=== PATIENT | female | born 1950 | race Caucasian/White ===

== ENCOUNTER 2017-01-15 13:51 | Inpatient (IN) ==
[2017-01-15 14:19] LABS: EOS# 0.35 X1000 (0.0-0.7); EOS% 6.5 % (0.0-10.0); HEMATOCRIT 28.4 % (37.0-47.0); HEMOGLOBIN 7.2 g/dL (12.0-16.0); LYMPH# 1.01 X1000 (1.2-3.4); LYMPH% 18.8 % (20.5-51.1); MANUAL DIFF NEEDED? YES; MCHC 25.4 g/dL (33-37); MCV 63.1 FL (81-99); MONO# 0.56 X1000 (0.11-0.59); MONO% 10.4 % (1.7-9.3); MPV 10.4 FL (7.4-10.4); NEUT% 62.3 % (42.2-75.2); PLT 384 X1000 (130-400)
[2017-01-15 14:47] LABS: EOS 1 % (1-10); HYPOCHROM 2+; LYMPHS 14 % (21-51); MONO 3 % (1-9)
[2017-01-15 14:55] LABS: AGAP 12; ALBUMIN 4.4 g/dL (3.5-5.0); ALKALINE PHOSPHATASE 95 U/L (32-104); BUN 11 mg/dL (8-22); CALCIUM 9.9 mg/dL (8.8-10.2); CHLORIDE 102 mmol/L (98-107); COSMO 276; GOT 18 U/L (10-30); GPT 10 U/L (10-36); POTASSIUM 4.3 mmol/L (3.5-5.1); SODIUM 138 mmol/L (136-145); TCO2 24 mmol/L (25-35); TOTAL BILIRUBIN 0.47 mg/dL (0.20-1.00); TOTAL PROTEIN 7.9 g/dL (6.3-8.3)
--- NOTE | 2017-01-15 15:35 | Diag Imaging Result Doc PS360 ---
EXAM: CHEST, TWO VIEWS HISTORY: None given TECHNIQUE: COMPARISON: None. FINDINGS: The lungs are well expanded. The heart is not enlarged. The vessels are not distended. No pneumonia. No pleural effusions. IMPRESSION: No acute abnormality Electronically signed by Magdaleno Park 01/15/2017 3:33 PM
[2017-01-15 16:24] LABS: RETIC% 2.2 % (0.8-2.1)
[2017-01-15 16:47] LABS: IRON SATURATION 2 %; TIBC 557 ug/dL; TOTAL IRON 12 ug/dL (49-151); UNBOUND IRON 545 ug/dL (112-346)
[2017-01-15] MEDS ORDERED: NS 1,000 ML IV SCH (16:58)
--- NOTE | 2017-01-15 17:27 | PROVIDER DOCUMENTATION ---
This chart was entered by Chanell Easley Scribe, acting as scribe for Shashank Mendoza MD. HPI-General Adult - General Chief Complaint: Abnormal Lab[s] Stated Complaint: LOW BLOOD Time Seen by Provider: 01/15/17 14:55 Source: patient - History of Present Illness -Gen Adult Nature of Presenting Problems: 66 y/o F presents to ED cc of abnormal labs. Pt states she was seen at PCP office where blood was drawn . Pt was told to come to ED for evaluation of low HGB/HCT levels. Pt states she does have a history of anemia and has had 2 blood transfusion in the past. Pt states she went to see PCP due to increase of weakness/ fatigue feeling. Pt denies any chest pain . Pt denies bleeding from anywhere. Pt is alert and oriented. Location of Pain/Injury: reports: none Pain Radiation: reports: no radiation Quality of Pain: reports: none Severity: reports: mild Onset/Duration: reports: just prior to arrival Timing: reports: still present Context/Activities at Onset: reports: light activity Modifying Factors: improves with: nothing Associated Symptoms: reports: fatigue, weakness. denies: arm pain, back/neck pain, chest pain, cough, fever/chills, heartburn, malaise, sinus congestion/ drainage, seizure, shortness of breath, swelling/mass in abdomen, syncope Similar Symptoms Previously?: Yes Recently seen or treated by another doctor?: No Review of Systems - Adult - REVIEW OF SYSTEMS - ADULT Constitutional: reports: fatique, other (abnormal labs). denies: chills, fever , night sweats, weight gain Eyes: denies: blurred vision, double vision Ears, Nose, Mouth & Throat: denies: ear pain, nose pain, loose teeth, throat pain Cardiovascular: denies: chest pain, palpitations Respiratory: denies: cough, shortness of breath Gastrointestinal: denies: abdominal pain, diarrhea, difficulty swallowing, nausea, rectal bleeding, vomiting Genitourinary: denies: dysuria, discharge, hematuria, hesitency Musculoskeletal: reports: other (weakness). denies: bone pain, back pain, muscle aches, neck pain Neurological: denies: dizziness/vertigo, headache/migraines, seizure, slurred speech Past History - Adult - PAST MEDICAL HISTORY-ADULT Review of Records: reports: Old Records Reviewed, Nursing Assessment Review Other Conditions: reports: other (anemia) - IMMUNIZATION STATUS Childhood Immunizations: See Nurse Assessment Flu Vaccine: See Nurse Assessment - SOCIAL HISTORY Smoking: denies, non-smoker Substance Use: none/never, denies Physical Exam-General - PHYSICAL EXAM-ADULT Initial Vital Signs Reviewed: Yes - CONSTITUTIONAL General Appearance: appears well, alert - EYES Eyes: PERRL/EOMI, other (conjunctivae pale) - HEAD, EARS, NOSE, MOUTH & THROAT HENMT: normocephalic/atraumatic, moist mucous membranes, normal ENT inspection - NECK Neck: non-tender, full range of motion - RESPIRATORY Respiratory: chest non-tender, lungs clear, normal breath sounds - CARDIOVASCULAR Cardiovascular: normal peripheral pulses, tachycardia - GASTROINTESTINAL (ABDOMEN) Abdominal Exam: normal bowel sounds, non tender, soft - MUSCULOSKELETAL Back Exam: normal inspection, no CVA tenderness, no vertebral tenderness Extremity: normal range of motion, non-tender, normal gait - SKIN Integumentary: warm/dry, pallor - NEUROLOGIC Neurologic: grossly normal, no motor/sensory deficits - PSYCHIATRIC Psych/Mental Status: oriented x 3 Progress - PLAN OF CARE/RESULTS Progress/Plan/Lab Results: Vital Signs - 8 hr 01/15/17 13:57 Temperature 98.1 F Pulse Rate 91 H Respiratory Rate 16 Blood Pressure 135/65 O2 Sat by Pulse Oximetry 100 Laboratory Results - last 24 hr 01/15/17 01/15/17 01/15/17 14:05 14:05 14:05 WBC 5.37 RBC 4.50 Hgb 7.2 L Hct 28.4 L MCV 63.1 L MCH 16.0 L MCHC 25.4 L RDW Std Deviation 22.0 H Plt Count 384 MPV 10.4 Immature Gran % (Auto) 0.0 Neut % (Auto) 62.3 Lymph % (Auto) 18.8 L [place] % (Auto) 10.4 H Eos % (Auto) 6.5 Baso % (Auto) 2.0 H Immature Gran # (Auto) 0.00 Neut # (Auto) 3.34 Lymph # (Auto) 1.01 L [place] # (Auto) 0.56 Eos # (Auto) 0.35 Baso # (Auto) 0.11 Segmented Neutrophils 82 H Lymphocytes 14 L Monocytes 3 Eosinophils 1 Hypochromia 2+ Anisocytosis 2+ Microcytosis 2+ Sodium 138 Potassium 4.3 Chloride 102 Carbon Dioxide 24 L Anion Gap 12 BUN 11 Creatinine 0.7 Estimated GFR/1.73 m2 > 60 BUN/Creatinine Ratio 16 Glucose 120 H Calculated Osmolality 276 Calcium 9.9 Total Bilirubin 0.47 AST 18 ALT 10 Alkaline Phosphatase 95 Total Protein 7.9 Albumin 4.4 Globulin 3.5 Albumin/Globulin Ratio 1.3 Blood Type O NEGATIVE Antibody Screen NEGATIVE Orders Category Date Time Status Transfuse .Give-Transfuse Care 01/15/17 15:12 Active CHEST-2 VIEWS [RAD] Stat Exams 01/15/17 15:12 Ordered CBC WITH DIFF [HEME] Stat Lab 01/15/17 14:05 Completed CMP [COMPREHENSIVE METABOLIC PANEL] [CHEM] Stat Lab 01/15/17 14:05 Completed PRBC [LRPC (RED CELLS)] [BBK] Stat Lab 01/15/17 15:12 Uncollected TYPE & SCREEN [BBK] Stat Lab 01/15/17 14:05 Completed PLAN: LABS , MONITOR PT ADMISSION ONCE LABS ARE COMPLETED PT LABS ARE BACK AND BLOOD HAS BEEN ORDERED FOR THE PT Result Diagrams: 01/15/17 14:05 01/15/17 14:05 - CONSULTS/PCP/HOSPITALIST Notification #1 *Consult/PCP/Hospitalist*: Hector([facility] w/ hospitalist) Dr. Caraballo(hospitalist) Time Discussed: 15:14 Consult Disposition: Admit (accept pt) Departure - Departure Date of Disposition Decision: 01/15/17 Time of Disposition Decision: 15:25 DIAGNOSIS: Symptomatic anemia Disposition: ADMITTED INPATIENT 09 Certified Medical Emergency: Emergent Condition: Stable - Critical Care Note This patient required my direct & personal management of CC.: No This chart was documented by the indicated scribe, (Chanell Easley Scribe) and accurately reflects the services I performed and decisions made by me, Shashank Mendoza MD, as attested by the provider's signature.
--- NOTE | 2017-01-15 18:38 | HISTORY AND PHYSICAL ---
CHIEF COMPLAINT: Abnormal labs. HISTORY OF PRESENT ILLNESS: Mrs. Lomeli is a 66-year-old female with history of chronic anemia, fatty liver disease, diverticulosis who presents to the ER after being instructed to come here by her PCP. She had blood work drawn yesterday and was found to be profoundly anemic. She was called back today and was told to come to the ER for further evaluation. In the ER she had labs and diagnostics done. Her hemoglobin and hematocrit is noted to be 7.2 and 28.4 with an MCV of 63.1. The rest of her labs were unremarkable. Subjectively the patient does report fatigue over the past few months and some shortness of breath with exertion but she denies any other complaints. No fever, chills, cough, congestion, nausea, vomiting, diarrhea or dysuria. She denies any melena, hematochezia or hematemesis. She reports that she has been on anemic essentially her whole life but is not on any medications for this. She denies ever having had a colonoscopy as well. She is currently being transfused PRBCs and is going to be admitted for further treatment and evaluation. PAST MEDICAL HISTORY: 1. Fatty liver. 2. Chronic anemia. 3. Diverticulosis. PAST SURGICAL HISTORY: She has had a bladder sling and a colonoscopy. SOCIAL HISTORY: Patient denies tobacco, alcohol or drug use. 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 She is . is at the bedside. FAMILY HISTORY: Mother from old age. Father [place] at 52. Sister at 62 with COPD. She has other brothers that are alive, only history of cancer is in an uncle. REVIEW OF SYSTEMS: Fourteen-point review of systems obtained and found to be negative with the exception of the HPI. ALLERGIES: To acetaminophen, codeine, hydrocodone, iodinated contrast media oral and IV, oxytetracycline and penicillins. HOME MEDICATIONS: None. PHYSICAL EXAMINATION: VITAL SIGNS: Blood pressure is 131/71, heart rate 81, respiratory rate 18, O2 saturation 99% on room air, temperature is 98.1 degrees. GENERAL: This is a disheveled appearing 66-year-old female lying in hospital bed in no acute distress. NEUROLOGIC: She is awake, alert, oriented. She follows commands without focal deficits. HEENT: Head is atraumatic and normocephalic. Her pupils are equal, round, reactive to light. Conjunctivae pale, oral mucosa is pale and moist. Trachea is midline. CHEST: Clear to auscultation bilaterally. CV: Regular rate and rhythm. S1-S2 is noted. No murmurs, gallops, clicks, rubs. GI: Soft, nondistended, nontender. Bowel sounds positive. EXTREMITIES: Without edema, clubbing or cyanosis. Pulses palpable bilaterally. DIAGNOSTIC DATA: Chest x-ray negative. WBC 5.37, hemoglobin 7.2, hematocrit 28.4, MCV 63.1, platelet count 384,000. Sodium 138, potassium 4.3, chloride 102, CO2 24, anion gap 12, BUN 11, creatinine 0.7, glucose is 120, calcium 9.9. LFTs within normal limits. Albumin 4.4. ASSESSMENT AND PLAN: 1. Symptomatic microcytic anemia: Given her history of chronic anemia and fairly poor diet this would seem to be iron deficiency anemia secondary to poor oral intake of iron. However, she does take aspirin multiple times a week for various aches and pains so would not rule out gastritis or even an ulcer but she did not have any abdominal pain and denies any melena. We are going to get Dr. Michael to see her for possible endoscopy as she has never had a colonoscopy or EGD. She is currently being transfused with PRBCs and will check iron studies. 2. History of fatty liver: Liver function tests stable. She denies any abdominal pain. Abdomen exam is negative. 3. Deep vein thrombosis prophylaxis is going to be provided with SCDs/TEDs, hopefully she will be able to go home in the next 24-48 hours. Dictated by MARITZA Cuello for Shama Caraballo MD cc: MD Shama Palmer MD [facility]ITALMartin
[2017-01-15] MEDS: PEPCID IV SCH (18:47)
[2017-01-15] MEDS: SODIUM CHLORIDE 0.9% INJ SCH (18:47)
[2017-01-15] MEDS ORDERED: DULCOLAX PR PRN (19:33)
--- NOTE | 2017-01-15 22:20 | CONSULTATION ---
DATE OF CONSULTATION: 01/15/2017 PRIMARY CARE PROVIDER: Aayush Hamilton M.D. PRIMARY HOSPITALIST: Shama Caraballo M.D. INDICATION FOR CONSULTATION: 1. Unexplained anemia. 2. Fatigue. HISTORY OF PRESENT ILLNESS: The patient is a 66-year-old white female whose past medical history includes chronic anemia, fatty liver disease and diverticulosis. She presented to the emergency room after she underwent evaluation by her primary care physician for fatigue. She was noted to be significantly anemic in his office. She denies other symptoms. She states that she has been anemic all her life. PAST MEDICAL HISTORY: 1. Fatty liver. 2. Chronic anemia. 3. Diverticulosis. 4. Constipation. 5. Mitral valve prolapse. PAST SURGICAL HISTORY: 1. Bladder sling. 2. Cholecystectomy. 3. She denies a previous colonoscopy. SOCIAL HISTORY: Patient denies alcohol, tobacco or recreational drug use. FAMILY HISTORY: Negative for colon cancer. She does note that her mother from old age. Her father had a myocardial infarction at 52. Her sister had COPD at 62. She has brothers who are alive and well. REVIEW OF SYSTEMS: Remarkable for constipation, hunger and increased thirst. She also notes a headache since she has been anemic and n.p.o. MEDICATION ALLERGIES: 1. Acetaminophen. 2. Codeine. 3. Hydrocodone. 4. Iodinated contrast. 5. Oxytetracycline. 6. Penicillins. 7. She reports an adverse reaction to general anesthesia at [facility]. HOME MEDICATIONS: None. PHYSICAL EXAM: General: She is in no acute distress. Vital signs: Her blood pressure is 137/63, pulse 78, respiration 18, temperature of 98.2 degrees. HEENT: Unremarkable. Pulmonary: Lungs are clear to auscultation with normal respiratory effort. Cardiovascular Exam: Reveals regular rate and rhythm with no murmurs, gallops, or rubs. Abdomen: Reveals normoactive bowel sounds. The abdomen is soft with mild right upper quadrant tenderness but no rebound or guarding. Extremities: Bilaterally are negative for cyanosis, clubbing or edema. OBJECTIVE DATA: Reveals a hemoglobin of 7.2 with hematocrit 28.4 and a white count of 5.37. She has 384,000 platelets. Sodium is 138, potassium 4.3, chloride 102, CO2 24, BUN 11, creatinine 0.7, glucose of 120. Calcium is 9.9, total bilirubin 0.47, AST 18, ALT 10, alkaline phosphatase 95, total protein 7.9 and albumin 4.4. Iron is 12 with a ferritin of 4. B12 is 445. Vitamin D 25 hydroxy is 19.8 with a folic acid of 23.7. IMPRESSION: 1. Anemia. 2. Constipation. 3. History of fatty liver disease. 4. History of diverticulosis. 5. Iron deficiency anemia. 6. Anemia of chronic disease. RECOMMENDATION: 1. I recommended that the patient undergo an EGD and colonoscopy. She is somewhat reluctant to make a decision today given her adverse reaction to general anesthesia at [facility]. I shared with her that we use propofol as opposed to deep general anesthesia. She will think about it and reconsider whether or not to undergo endoscopy this admission. She also inquired about performing a colonoscopy and EGD with no sedation. I actively discouraged her from undergoing the procedure without sedation. 2. The patient reports a history of peptic ulcer disease as a child. Therefore , I recommend continuing the IV Pepcid as you are doing. 3. She reports constipation. Therefore, I will begin MiraLAX 17 g daily. She may have a Dulcolax suppository at bedtime as needed for constipation. 4. She should be placed on anti-reflux precautions. 5. Additional recommendations to follow based on the clinical course and the results of her evaluation. cc: Shama Caraballo MD MTDD
[2017-01-16] MEDS: TYLENOL PO PRN ×2 (00:44→23:14)
[2017-01-16 05:33] LABS: HEMATOCRIT 30.8 % (37.0-47.0); HEMOGLOBIN 8.3 g/dL (12.0-16.0); MCH 17.8 PG (27-31); MCHC 26.9 g/dL (33-37); MPV 10.4 FL (7.4-10.4); RBC 4.67 XMIL (4.2-5.4)
[2017-01-16 05:52] LABS: AGAP 12; BUN 8 mg/dL (8-22); CHLORIDE 103 mmol/L (98-107); COSMO 279; POTASSIUM 3.9 mmol/L (3.5-5.1); SODIUM 141 mmol/L (136-145); TCO2 26 mmol/L (25-35)
[2017-01-16] MEDS ORDERED: VITAMIN D PO SCH (07:30)
[2017-01-16] MEDS: PEPCID IV SCH ×2 (07:54→21:51)
[2017-01-16] MEDS: MIRALAX PO SCH ×2 (07:54→08:10)
[2017-01-16] MEDS: FERROUS SULFATE PO SCH (09:43)
--- NOTE | 2017-01-16 14:24 | PROGRESS NOTE ---
DATE: 01/16/2017 SUBJECTIVE: This patient states that she is feeling better. No acute events overnight. OBJECTIVE: Vital Signs: Temperature 98.1 degrees, pulse 70, respiratory rate 18, blood pressure 128/56, oxygen saturation 99 on room air. HEENT: Head normocephalic. No trauma. PERRLA. Neck: Supple. No JVD. No masses. Central trachea. Chest: Clear to auscultation. No wheezing. No rales. Abdomen: Soft, nontender, nondistended. No hepatosplenomegaly. Extremities: No edema. No clubbing. No cyanosis. Neurological: The patient is alert and oriented x3. No focal neurological deficits. LABORATORY: WBC 7.1, hemoglobin 8.3, hematocrit 30.8, platelets 390,000. Sodium 141, potassium 3.9, chloride 103, bicarbonate 26, BUN 8, creatinine 0.6 glucose 93, calcium 10. ASSESSMENT AND PLAN: 1. Symptomatic microcytic anemia. Apparently she has a history of chronic anemia and poor diet, this is likely secondary to iron deficiency anemia. I will put this patient on ferrous sulfate. She has been transfused with 1 PRBC. Gastroenterology Department evaluated this patient. They are planning to do an endoscopy for next week. I discussed the case with the patient. At the beginning she was reluctant to do the procedure but now she seems to understand she needs that. She will discuss the case again with the soda tester hopefully today. 2. History of fatty liver. Liver function tests stable. Continue with the same management. 3. History of peptic ulcer disease. Aware. Continue with Protonix. 4. Constipation. Continue with the same management. 5. Deep vein thrombosis prophylaxis. Continue with sequential compression devices and MITZI hoses. cc: Killian Echeverria MD
--- NOTE | 2017-01-16 18:17 | PROGRESS NOTE ---
DATE: 01/16/2017 PRIMARY HOSPITALIST: Killian Rincon M.D. PRIMARY PHYSICIAN: Aayush Hamilton M.D. HISTORY OF PRESENT ILLNESS: The patient has considered our recommendation for endoscopy. She is willing to have the procedure done on Wednesday but remains concerned about the anesthesia. Specifically, she would like a lower dose of anesthesia as she had difficulty with breathing post anesthesia when she had a procedure done at [facility]. Unfortunately, she had general anesthesia but does not recall which medications were administered. She is somewhat anxious but states that she is willing to undergo the procedure to determine the cause of her persistent anemia. OBJECTIVE DATA: Reveals a blood pressure of 128/56, pulse of 70, respiration 18 , temperature of 98.1 degrees. The exam was deferred because the patient was eating lunch. Her hemoglobin is 8.3 with hematocrit of 30.6 and a white count of 7.18. She has 390,000 platelets. Sodium is 141, potassium 3.9, chloride 103, CO2 26, BUN 8, creatinine 0.6, with a glucose of 93 ,and a calcium of 10. RECOMMENDATION: We will plan to perform an EGD-colonoscopy on Wednesday. The patient wants to talk with Anesthesia regarding her sedation and her concerns about the potential for over sedation. Consent was discussed and multiple questions were answered. cc: MD Killian Ambrosio MD Jay Pohl, MD [facility]Martin
[2017-01-17 06:24] LABS: HEMATOCRIT 30.4 % (37.0-47.0); HEMOGLOBIN 8.2 g/dL (12.0-16.0); MCH 17.9 PG (27-31); MCV 66.2 FL (81-99); MPV 10.6 FL (7.4-10.4); RBC 4.59 XMIL (4.2-5.4)
[2017-01-17 06:32] LABS: AGAP 11; BUN 6 mg/dL (8-22); CALCIUM 10.3 mg/dL (8.8-10.2); CHLORIDE 106 mmol/L (98-107); COSMO 282; SODIUM 143 mmol/L (136-145); TCO2 26 mmol/L (25-35)
[2017-01-17] MEDS: FERROUS SULFATE PO SCH (08:34)
[2017-01-17] MEDS: MIRALAX PO SCH (08:34)
[2017-01-17] MEDS: PEPCID IV SCH ×3 (08:34→21:14)
--- NOTE | 2017-01-17 11:34 | PROGRESS NOTE ---
DATE: 01/17/2017 SUBJECTIVE: Ms. Lomeli was admitted on 01/15/2017. She is a 66-year-old with a history of chronic anemia, fatty liver disease, diverticulosis. She came to the emergency room after instructed to come here by her primary care physician, Dr. Aayush Hamilton. She had labs and diagnostic in the ER, hemoglobin and hematocrit. Hemoglobin was 7.2, hematocrit 28, MCV was 63. The rest of her labs were unremarkable. Denied any fever or chills, so was admitted with symptomatic macrocytic anemia, chronic anemia, fairly poor diet with iron deficiency, history of fatty liver I believe. She feels better. OBJECTIVE: Vital Signs: Temperature 98.2 degrees, pulse 65, respirations 18, blood pressure 106/52. HEENT: The pupils are equal and round. Lungs: Clear in all lung belcher. Cardiovascular: Regular rhythm and rate without murmur or S3. Abdomen: Soft. Skin: Warm and dry. ASSESSMENT AND PLAN: 1. Symptomatic microcytic anemia. History of chronic anemia, poor diet, likely iron deficiency. The patient is on ferrous sulfate. Transfuse 1 unit packed red blood cells. Dr. Cuca Michael is seeing for GI. Plan on doing an endoscopy. I believe that is in the morning. 2. History of fatty liver. 3. History of peptic ulcer disease. 4. Constipation. Review of her lab, I really do not see any change at this point. cc: Jamal Cool MD
[2017-01-17] MEDS ORDERED: DULCOLAX PO ONE (18:00)
[2017-01-17] MEDS ORDERED: MIRALAX PO ONE (19:00)
[2017-01-18] MEDS: TYLENOL PO PRN (01:55)
[2017-01-18] MEDS ORDERED: DULCOLAX PO ONE (04:00)
[2017-01-18 05:47] LABS: HEMATOCRIT 28.6 % (37.0-47.0); HEMOGLOBIN 7.6 g/dL (12.0-16.0); MCH 18.1 PG (27-31); MCHC 26.6 g/dL (33-37); MCV 68.3 FL (81-99); MPV 10.6 FL (7.4-10.4); RBC 4.19 XMIL (4.2-5.4)
[2017-01-18 06:02] LABS: AGAP 13; BUN 5 mg/dL (8-22); CALCIUM 9.9 mg/dL (8.8-10.2); CHLORIDE 105 mmol/L (98-107); COSMO 282; POTASSIUM 3.6 mmol/L (3.5-5.1); SODIUM 143 mmol/L (136-145); TCO2 25 mmol/L (25-35)
[2017-01-18] MEDS ORDERED: CITRATE OF MAGNESIA PO ONE (07:00)
[2017-01-18] MEDS: FERROUS SULFATE PO SCH (10:02)
[2017-01-18] MEDS: PEPCID IV SCH ×2 (10:03→21:53)
[2017-01-18] MEDS: MIRALAX PO SCH (10:03)
[2017-01-18] MEDS ORDERED: GOLYTELY PO ONE (12:15)
[2017-01-18] MEDS: CLINIMIX E 4.25%-5% SOLUTION 1,000 ML IV SCH (14:35)
--- NOTE | 2017-01-18 16:27 | PROGRESS NOTE ---
DATE: 01/18/2017 SUBJECTIVE: Ms. Lomeli did not take much of the prep; she did not tolerate it. She did not want to do the EGD. She was concerned about the anesthesia so she refused this morning. But then when I talked to her which was around 12 o'clock, she wanted to proceed with it. OBJECTIVE: Vital signs: She is afebrile, temp 97.3 degrees, pulse 77, respirations 24, and blood pressure 122/64. HEENT: Pupils are equal, round. Lungs: Clear in all lung belcher. Cardiovascular: Regular rhythm and rate without murmur or S3. LABORATORY: Her blood count this morning, white count 7,480, hematocrit 28, hemoglobin 7.6, MCV is 68. Sodium 143, potassium 3.6, chloride 109, bicarb 25, BUN 5, creatinine 0.6. ASSESSMENT AND PLAN: 1. Note she is still losing blood, microcytic picture. She has refused colonoscopy. She is concerned about the anesthesia. I have talked to Dr. Michael. Dr. Michael wanted me to discuss this with anesthesia. I asked Dr. Michael to call anesthesia and discuss if they want to do a preop assessment and maybe we can figure out a way to do that. I will get her some Clinimix. I think we are going to have to proceed if we can with colonoscopy, but she is very fearful of sedation and she has not had a full prep. Will start her on some Colyte. 2. History fatty liver. 3. History of peptic ulcer disease. 4. Constipation. REVIEW OF ORDERS: She is on Pepcid 20 mg IV q.12. We will try some Colyte 50 to 100 mL and see if we can maybe set up for a colonoscopy tomorrow. Continue IV fluids. I will give her some Clinimix for nutrition at her request and see if we can go from there. cc: Jamal Cool MD
[2017-01-18] MEDS: SODIUM CHLORIDE 0.9% INJ SCH (21:53)
[2017-01-19] MEDS: CLINIMIX E 4.25%-5% SOLUTION 1,000 ML IV SCH ×2 (01:28→11:09)
[2017-01-19 06:29] LABS: BASO% 1.5 % (0.0-0.8); EOS# 0.34 X1000 (0.0-0.7); EOS% 5.2 % (0.0-10.0); HEMATOCRIT 30.4 % (37.0-47.0); HEMOGLOBIN 8.1 g/dL (12.0-16.0); LYMPH# 1.31 X1000 (1.2-3.4); LYMPH% 20.2 % (20.5-51.1); MANUAL DIFF NEEDED? NO; MCH 17.8 PG (27-31); MCHC 26.6 g/dL (33-37); MONO# 0.99 X1000 (0.11-0.59); MONO% 15.3 % (1.7-9.3); MPV 10.6 FL (7.4-10.4); NEUT% 57.8 % (42.2-75.2); PLT 434 X1000 (130-400); RBC 4.54 XMIL (4.2-5.4)
[2017-01-19] MEDS: MIRALAX PO SCH (10:00)
[2017-01-19] MEDS: FERROUS SULFATE PO SCH (10:00)
[2017-01-19] MEDS: SODIUM CHLORIDE 0.9% INJ SCH ×2 (10:01→20:57)
[2017-01-19] MEDS: PEPCID IV SCH ×2 (10:01→20:57)
[2017-01-19] MEDS ORDERED: DIPRIVAN 1% ONE (13:54)
[2017-01-19] MEDS ORDERED: VERSED ONE (13:54)
[2017-01-19] MEDS ORDERED: XYLOCAINE-MPF 2% ONE (13:57)
--- NOTE | 2017-01-19 14:59 | PROGRESS NOTE ---
DATE: 01/19/2017 SUBJECTIVE: She tolerated the prep yesterday and is going to get a colonoscopy today. OBJECTIVE: Vital signs: Temperature 98.4 degrees, pulse 99, respirations 18, blood pressure 134/54. HEENT: Pupils are equal. Lungs: Clear in all lung belcher. Cardiovascular: Regular rhythm and rate without murmur or S3. Abdomen: Soft. Skin: Is warm and dry. Urine output 7800 mL. LAB REVIEW: From today, white count 6490, hematocrit 30 which is up from yesterday 28, hemoglobin is 8.1, MCV is 67. Chemistry, sodium 143, potassium 3.6, chloride 105, bicarb 25, BUN 5, creatinine 0.6. ASSESSMENT AND PLAN: 1. Still losing blood microcytic picture. Hematocrit is stable right now so plan is colonoscopy and I have her on some IV Clinimix, she tolerated the prep. Anesthesia has assessed her. She is concerned about the anesthesia wants to make sure she is not put all way under. 2. History fatty liver. 3. Peptic ulcer disease. 4. History constipation. Review of her orders I do not see anything to change at this point, she is on iron, Pepcid 20 mg IV q.12. cc: Jamal Cool MD
[2017-01-20] MEDS: TYLENOL PO PRN (00:24)
[2017-01-20] MEDS: CLINIMIX E 4.25%-5% SOLUTION 1,000 ML IV SCH ×2 (02:45→19:21)
[2017-01-20 06:16] LABS: BASO% 1.3 % (0.0-0.8); EOS# 0.59 X1000 (0.0-0.7); EOS% 7.6 % (0.0-10.0); HEMATOCRIT 29.1 % (37.0-47.0); HEMOGLOBIN 7.7 g/dL (12.0-16.0); LYMPH# 1.55 X1000 (1.2-3.4); LYMPH% 19.9 % (20.5-51.1); MANUAL DIFF NEEDED? YES; MCH 17.9 PG (27-31); MCHC 26.5 g/dL (33-37); MCV 67.7 FL (81-99); MONO# 1.04 X1000 (0.11-0.59); MONO% 13.4 % (1.7-9.3); MPV 10.4 FL (7.4-10.4); NEUT% 57.8 % (42.2-75.2); PLT 379 X1000 (130-400)
[2017-01-20 07:15] LABS: BANDS 4 % (0-1); EOS 8 % (1-10); LYMPHS 22 % (21-51); MONO 14 % (1-9)
[2017-01-20 07:16] LABS: HYPOCHROM 2+; LARGE PLATELETS 1+
--- NOTE | 2017-01-20 07:34 | OPERATIVE NOTE ---
PROCEDURE DATE: 01/19/2017 REFERRING PHYSICIAN: Jamal Cool M.D. INDICATION FOR PROCEDURE: Progressive anemia. PROCEDURE PERFORMED: Esophagogastroduodenoscopy. CONSENT: Informed consent was obtained from the patient prior to the procedure. The risks, benefits, and alternatives were discussed with the patient and her . MEDICATIONS: The patient received monitored anesthesia care. PERFORMING PHYSICIAN: Cuca Michael M.D. ASSISTANTS: 1. ST. Epi 2. Kristie Domingo RN. 3. Tammy Marina CRNA. 4. Robin Samano M.D. (anesthesia) COMPLICATIONS: There were no complications. ESTIMATED BLOOD LOSS: None. SPECIMENS REMOVED: None. FINDINGS: After sedation was achieved, the upper endoscope was inserted to the 2nd portion of the duodenum. The hypopharynx and tubular esophagus appeared normal. The GE junction appeared normal at 40 cm from the incisors. There was a hiatal hernia that spanned from 40-45 cm. In the gastric lumen, there was mild nonerosive gastritis in the fundus and body. There was minimal erythema in the antrum. The pylorus appeared normal. The 1st and 2nd portion of the duodenum appeared normal. There was no evidence of Mcdowell's esophagus or esophageal varices on the exam. After the exam was complete, the lumen was decompressed and the scope was removed without incident. IMPRESSION: 1. Hiatal hernia. 2. Mild nonerosive gastritis. 3. Otherwise normal exam. RECOMMENDATION: 1. Consider PPI therapy if the patient has heartburn. 2. Proceed with the colonoscopy as previously scheduled. 3. No cause of bleeding was found on this exam. cc: MD Jamal Ambrosio MD [facility]
--- NOTE | 2017-01-20 07:38 | OPERATIVE NOTE ---
PROCEDURE DATE: 01/19/2017 REFERRING PHYSICIAN: Dr. Jamal Cool M.D. INDICATION FOR PROCEDURE: Progressive anemia. PROCEDURE PERFORMED: Colonoscopy with polypectomy. CONSENT: Informed consent was obtained from the patient prior to the procedure. The risks, benefits, alternatives were discussed with the patient and her . MEDICATION: The patient received monitored anesthesia care. PERFORMING PHYSICIAN: Cuca Michael M.D. ASSISTANTS: 1. ST. [facility] 2. Wander Duran RN. 3. Tammy Marina CRNA. 4. Robin Samano M.D. (anesthesia). COMPLICATIONS: There were no complications. ESTIMATED BLOOD LOSS: Less than 1 mL. SPECIMENS REMOVED: Colon polyp at 20 cm. CECAL INTUBATION TIME: 8 minutes. Withdrawal time: 11 minutes. Prep quality: Fair. FINDINGS: After sedation was achieved, the pediatric colonoscope was inserted to the terminal ileum. The terminal ileum, ileocecal valve, and appendiceal orifice appeared endoscopically normal. Upon withdrawal, the colonic mucosa appeared normal in all segments of the colon. There was extensive diverticulosis throughout the colon with a left-sided predominance. At 20 cm, there was a 5-10 mm sessile polyp that was removed by snare cautery. In the upper rectum, there were grade 2 internal hemorrhoids. On retroflexed view, there were medium external hemorrhoids. The scope easily prolapsed through the rectum. On rectal exam, there was mild rectal prolapse with non-thrombosed hemorrhoids. After the exam was complete, the lumen was decompressed and the scope was removed without incident. IMPRESSION: 1. Sessile colon polyp at 20 cm, status post snare cautery. 2. Diverticulosis. 3. Grade 2 internal hemorrhoids. 4. Medium external hemorrhoids. 5. Rectal prolapse. RECOMMENDATIONS: 1. Await biopsy results. 2. Repeat colonoscopy in 5 years depending on the biopsy. 3. There was no evidence of bleeding today on the exam. If her hemoglobin continues to drop, I would consider an outpatient capsule endoscopy. 4. It should be noted that her stools have been heme negative on testing. Therefore, I would consider a non-gastrointestinal causes of anemia and consult Hematology/ Oncology. 5. Additional recommendations to follow based on her clinical course. cc: MD Jamal Ambrosio MD MTDD
[2017-01-20] MEDS: PEPCID IV SCH ×2 (09:11→19:51)
[2017-01-20] MEDS: FERROUS SULFATE PO SCH (09:11)
[2017-01-20] MEDS: MIRALAX PO SCH (09:11)
[2017-01-20] MEDS: SODIUM CHLORIDE 0.9% INJ SCH ×2 (09:14→19:51)
[2017-01-20] MEDS ORDERED: NS 500 ML IV ONE (14:37)
[2017-01-20 15:47] LABS: IRON SATURATION 77 %; TIBC 479 ug/dL; TOTAL IRON 367 ug/dL (49-151); UNBOUND IRON 112 ug/dL (112-346)
--- NOTE | 2017-01-20 16:05 | PROGRESS NOTE ---
DATE: 01/20/2017 SUBJECTIVE: Ms. Lomeli is feeling better. She did finish her procedures. OBJECTIVE: Temperature 97.9 degrees, pulse 78, respirations 18, blood pressure 112/56.HEENT: Pupils are equal and round. Lungs: Clear in all lung belcher. Cardiovascular: Regular rhythm and rate, without murmur or S3. Abdomen: Soft. Skin: Warm and dry. URINE OUTPUT: Over 4 L. LABORATORY: White count 7770, hematocrit 29, platelet count 379,000. Chemistry: Sodium 143, potassium 3.6, chloride 105, BUN 5, creatinine 0.6. ASSESSMENT AND PLAN: We thought that she was still losing blood with a microcytic picture, but her colonoscopy and EGD were really unremarkable. She has a microcytic picture and would like Hematology to evaluate. I am not sure this is blood loss. Her MCV is 67, so a microcytic picture, hemoglobin 7.7 and hematocrit 29. She had reticulocyte count on 01/16/2017 which was a low percent reticulocyte count. It was 2.2. We will continue proton pump inhibitors. I have asked for Hematology to see, as well, so Dr. Jarrell is to evaluate. She has had a long history of anemia and apparently a long history of what I presume is iron deficiency anemia, although I am not sure if she would benefit from iron or not. cc: Jamal Cool MD
[2017-01-21] MEDS: PEPCID IV SCH ×2 (00:10→08:55)
[2017-01-21] MEDS: TYLENOL PO PRN (00:15)
[2017-01-21] MEDS: CLINIMIX E 4.25%-5% SOLUTION 1,000 ML IV SCH ×3 (05:58→12:15)
[2017-01-21 06:51] LABS: BASO% 1.8 % (0.0-0.8); EOS# 0.77 X1000 (0.0-0.7); EOS% 8.9 % (0.0-10.0); HEMATOCRIT 35.6 % (37.0-47.0); HEMOGLOBIN 10.1 g/dL (12.0-16.0); IMM GRAN# 0.02 X1000 (0.0-0.04); IMM GRAN% 0.2 % (0.0-0.5); LYMPH# 1.65 X1000 (1.2-3.4); LYMPH% 19.1 % (20.5-51.1); MANUAL DIFF NEEDED? YES; MCH 19.8 PG (27-31); MCHC 28.4 g/dL (33-37); MCV 69.8 FL (81-99); MONO# 1.04 X1000 (0.11-0.59); MPV 10.6 FL (7.4-10.4); PLT 404 X1000 (130-400)
[2017-01-21 08:26] LABS: EOS 12 % (1-10); LYMPHS 20 % (21-51); MONO 8 % (1-9); NRBC 1 % (0-0)
[2017-01-21] MEDS ORDERED: ZOFRAN PO PRN (08:40)
[2017-01-21] MEDS: MIRALAX PO SCH (08:54)
[2017-01-21] MEDS: FERROUS SULFATE PO SCH (13:30)
[2017-01-21 14:01] VITALS: BP 118/69
--- NOTE | 2017-01-21 14:02 | DISCHARGE SUMMARY ---
ADMISSION DATE: 01/15/2017 DISCHARGE DATE: 01/21/2017 HISTORY OF PRESENT ILLNESS: The patient presented on 01/15/2017 and discharged on 01/21/2017. This is a 66-year-old female with history of chronic anemia, fatty liver disease and diverticulosis, who presented to the emergency room after being instructed to come here by her primary care physician, who is Dr. Aayush Hamilton. She had blood work drawn the day before, found to have profound anemia. She was called back and sent to the emergency room. Emergency room hemoglobin was 7.2, hematocrit 28, MCV 63. The rest of the labs are unremarkable. She reported fatigue for last few months, shortness of breath with exertion. Denied any other complaints. No fever or chills, congestion, vomiting, diarrhea or dysuria. Denies any melena or hematochezia. No hematemesis. PAST MEDICAL HISTORY: Again, fatty liver disease, chronic anemia, diverticulosis. HOSPITAL COURSE: The patient was admitted with symptomatic microcytic anemia and she also had iron-deficiency and reports she has had this for a long time. She was evaluated by Dr. Cuca Michael on 01/15/2017 and recommended that she undergo EGD and colonoscopy, which she was reluctant to do because of her fear of anesthesia. She apparently had a bad experience at [facility] with general anesthesia, but we were able to get the procedures done. She had EGD on 01/19/2017, found a hiatal hernia, mild nonerosive gastritis, otherwise normal exam. She was put on PPIs for acid suppression. Colonoscopy showed sessile polyp about 20 cm status post snare cautery, diverticulosis, grade 2 internal hemorrhoids, medium external hemorrhoids and rectal prolapse. So, no obvious site of GI bleed. She was transfused some packed red blood cells and her hematocrit on 01/19/2017 was 30, hemoglobin 8.1 with an MCV of 67. Evaluated per Dr. Jarrell. Dr. Jarrell was consulted about the anemia. Studies were done. Note that the iron level was 367, total iron binding capacity 479. O2 saturation was 77%. TSH 3.48, folate was 9.3, B 12 was 426. She was transfused some more blood on 01/20. KLEVER was negative. B 12 426, folate 9.3. She requested to go home. She has chronic iron-deficiency anemia and she may benefit from some iron. At this point, she was very hesitant about pursuing bone marrow biopsy, but was insistent she wanted to go home. So, we will discharge her home and have her follow up with Dr. Jarrell with hematology and Dr. Michael for GI. cc: Jamal Cool MD
--- NOTE | 2017-01-22 14:55 | CONSULTATION ---
DATE OF CONSULTATION: 01/20/2017 ADMITTING PHYSICIAN: Dr. Caraballo. REQUESTING PHYSICIAN: Dr. Caraballo. We appreciate this consult. CHIEF COMPLAINT: Anemia. HISTORY OF PRESENT ILLNESS: Ms. Lomeli is a 66-year-old, female with a history of chronic anemia, fatty liver disease, diverticulosis, who presented to [facility] at the behest of her primary care physician. She had blood work drawn and was found to be profoundly anemic. She was told that her hemoglobin was 6 and upon presentation to [facility] her hemoglobin was found to be 7.2 with an MCV of 63.1. Other laboratory data was unremarkable. The patient did report that she had recent fatigue, and she denied any fevers, chills, cough, congestion, nausea, vomiting, diarrhea, or dysuria. Additionally, the patient reports that she has not had any recent bleeding to include melena, hematochezia or hematemesis. She does report that she has been anemic most of her life. She has never had a GI workup. She is status post transfusion of packed red blood cells at this time. PAST MEDICAL HISTORY: 1. Fatty liver disease. 2. Chronic anemia. 3. Diverticulosis. PAST SURGICAL HISTORY: Bladder sling. SOCIAL HISTORY: The patient does not use tobacco, alcohol or illicit drugs. FAMILY HISTORY: Negative for any oncologic or hematologic problems. MEDICATIONS ON ADMISSION: None. ALLERGIES: Acetaminophen, codeine, hydrocodone, iodinated contrast media oral and IV, oxytetracycline, and penicillin. REVIEW OF SYSTEMS: A 14 point review of systems is negative except for as mentioned in HPI. PHYSICAL EXAM: Ms. Lomeli is a pleasant 66-year-old female, lying supine in bed in no immediate distress.Vital Signs: Temperature 98.1, blood pressure 107/60, heart rate 67, respirations are 16, O2 saturation 99% on room air. HEENT: Normocephalic, atraumatic. Mucous membranes are pale and moist. Sclerae anicteric. Extraocular movements intact. Neck: Supple. Lungs: Clear to auscultation bilaterally. Chest: Expansion is equal bilaterally. CV: S1, S2 is heard without murmur, rub or gallop. Abdomen: Soft, nondistended, nontender. Bowel sounds positive all quadrants. No rebound or guarding noted. Extremities: Without clubbing, cyanosis, or edema. Dermatologic: No rashes, bruises or lesions. Neurologic: The patient is awake, alert, and oriented x3. She has no focal deficit at this time. LABORATORY DATA: Hemoglobin 7.7, hematocrit 29.1, white blood cell count 7.77, platelets 379,000. ANC is 7.49. Colonoscopy pathology is currently pending. ASSESSMENT AND PLAN: 1. Symptomatic microcytic anemia. We will initiate anemia workup at this time. We will transfuse 1 unit packed red blood cells. 2. Fatty liver disease. Stable at this time. 3. Deep venous thrombosis prophylaxis. Currently on SCDs and TEDs. 4. Status post colonoscopy, found to have 1 colon polyp, sessile in nature. Pathology is currently pending. Of note, the patient did have a negative fecal occult blood test. 5. We will follow along with you and make further recommendations pending outcomes. The above reflects the history, exam, assessment and plan of Dr. Jarrell. Dictated by MARITZA Duong for Toney Jarrell MD cc: MARITZA Duong MD
[2017-01-24 07:41] LABS: HEMOGLOBIN ELECTROPHORESIS SEE COMMENTS
== END 2017-01-21 14:46 | disposition home or self-care (01) ==
LOC: ED 13:51 → 4N 16:26 → SUATTDRO 16:26
PROVIDERS: ATTEND Emergency Medicine